=== PATIENT | male | born 1995 | race Hispanic/Latino ===

== ENCOUNTER 2021-07-01 04:57 | Emergency (ER) | payer BC ==
[~2021-07-01] VITALS: Ht 170.2 cm; Wt 75.0 kg
[2021-07-01] MEDS ORDERED: ONDANSETRON ODT8 MG PO (06:21)
== END 2021-07-01 06:52 | disposition home or self-care (01) ==
LOC: ED 04:57
DX: K52.9 Noninfective gastroenteritis and colitis, unspecified (principal)
CPT/HCPCS: 36415; 80053; 81001; 83690; 85025; 96374; 99284-25; A9270; J2405; J7030